=== PATIENT | female | born 2000 | race Caucasian/White ===

== ENCOUNTER 2023-08-24 09:30 | Emergency (ER) | payer SELFPAY ==
[2023-08-24 09:42] VITALS: BP 119/76; PULSE 74; RESP 18; TEMP 98.1; BMI 42.0
== END 2023-08-24 11:34 | disposition home or self-care (01) ==
LOC: JERFT 09:30
DX: K06.9 Disorder of gingiva and edentulous alveolar ridge, unspecified (principal); K05.10 Chronic gingivitis, plaque induced
CPT/HCPCS: 99283-25